=== PATIENT | male | born 1935 | race Caucasian/White ===

== ENCOUNTER 2021-10-13 08:12 | Emergency (ER) | payer MEDICARE ==
[2021-10-13 08:23] VITALS: BP 169/92; PULSE 93; RESP 18; TEMP 97.8
--- NOTE | 2021-10-13 08:47 | XR ---
EXAMINATION TYPE: XR KUB DATE OF EXAM: 10/13/2021 8:41 AM CLINICAL HISTORY: Pain and constipation. TECHNIQUE: Two Upright KUB images of the abdomen are obtained. COMPARISON: None. FINDINGS: Scattered gas is seen in non-distended stomach and small bowel loops. Gas is seen in non-di stended colon. There is no visceromegaly, pneumoperitoneum, or abnormal calcification appreciated. Mo derate axial joint space loss both hips. Lung bases are clear. IMPRESSION: Overall nonobstructive bowel gas pattern.
--- NOTE | 2021-10-13 09:16 | ED ---
General Adult HPI - General Chief complaint: Abdominal Pain Stated complaint: Constipation Time Seen by Provider: 10/13/21 08:29 Source: patient, family, RN notes reviewed Mode of arrival: ambulatory Limitations: no limitations - History of Present Illness Initial comments: 86-year-old male without any significant past medical history presents to the em ergency room for constipation. Patient states that for the past 2 weeks he has had some mild constipation on and off. Patient states that for his whole life every day he's gone first thing in the morning however the past 2 weeks pulse sometimes go later in the day or not at all. Patient states that he had a bowel movement the past 2 mornings but he hasn't had one yet today and usually has one earlier than now at 9 AM. He denies any abdominal pain whatsoever. States he has been taking Dulcolax and MiraLAX. Denies any fevers. Denies any nausea or vomiting. Denies diarrhea.Patient has no other complaints at this time including shortness of breath, chest pain, abdominal pain, nausea or vomiting, headache, or visual changes. - Related Data Allergies Allergy/AdvReac Type Severity Reaction Status Date / Time No Known Allergies Allergy Verified 10/13/21 08:14 Review of Systems ROS Statement: Those systems with pertinent positive or pertinent negative responses have been documented in the HPI. ROS Other: All systems not noted in ROS Statement are negative. Past Medical History Past Medical History: No Reported History Additional Past Medical History / Comment(s): [facility] History of Any Multi-Drug Resistant Organisms: None Reported Past Surgical History: Orthopedic Surgery Additional Past Surgical History / Comment(s): Left leg surgery Past Psychological History: No Psychological Hx Reported Smoking Status: Former smoker Past Alcohol Use History: None Reported Past Drug Use History: None Reported General Exam Limitations: no limitations General appearance: alert, in no apparent distress Head exam: Present: atraumatic Eye exam: Present: normal appearance, PERRL, EOMI. Absent: scleral icterus, conjunctival injection ENT exam: Present: normal exam, mucous membranes moist Neck exam: Present: normal inspection, full ROM. Absent: tenderness Respiratory exam: Present: normal lung sounds bilaterally. Absent: respiratory distress, wheezes Cardiovascular Exam: Present: regular rate, normal rhythm, normal heart sounds GI/Abdominal exam: Present: soft, normal bowel sounds. Absent: distended, tenderness, guarding, rebound, rigid Course Vital Signs 10/13/21 08:15 Temperature 97.8 F Pulse Rate 93 Respiratory 18 Rate Blood Pressure 169/92 O2 Sat by Pulse 96 Oximetry Medical Decision Making - Medical Decision Making Vitals are stable. Patient is well-appearing. Patient does not have any abdominal tenderness whatsoever. XR of the abdomen showed a nonobstructive bowel gas pattern. On review of the film there is only mild constipation if anything. He since last bowel movement was less than 24 hours ago. On repeat abdominal exam no tenderness. I discussed with patient that at this time he should increase his fiber and fluid intake to try to regulate his bowel movements again. Discussed discontinuing the Dulcolax as this can be hard on his bowels. I recommended he follow up with a primary care doctor which she will need to be established with. I discussed that if he developed any worsening symptoms such as pain he needs to return to the emergency room. Disposition Clinical Impression: Intermittent constipation Disposition: HOME SELF-CARE Condition: Good Instructions (If sedation given, give patient instructions): High Fiber Diet (ED), Constipation (ED) Additional Instructions: Please increase fluid intake and increase fiber. you can get Benefiber to mix into drinks. Discontinue the Dulcolax. You can continue MiraLAX as needed. Follow-up with primary care physician. If you develop any worsening symptoms such as abdominal pain or fevers return to the emergency room. Is patient prescribed a controlled substance at d/c from ED?: No Referrals: Jose C Nelson [STAFF PHYSICIAN] - 1-2 days Tish Clark MD [STAFF PHYSICIAN] - 1-2 days John Wallace MD [REFERRING] - 1-2 days Time of Disposition: 09:15
== END 2021-10-13 09:26 | disposition home or self-care (01) ==
LOC: EC 08:12
DX: K59.00 Constipation, unspecified (principal); Z87.891 Personal history of nicotine dependence
CPT/HCPCS: 74018; 99284